=== PATIENT | male | born 1990 | race Caucasian/White ===

== ENCOUNTER 2018-12-23 04:56 | Emergency (ER) | payer SELFPAY ==
[~2018-12-23] VITALS: Ht 188 cm; Wt 83.9 kg
[~2018-12-23 04:56] MED LIST: CEPH500C PO; HYDR-1231 PO
[2018-12-23] MEDS ORDERED: SULF1TAB35 PO (05:38)
--- NOTE | 2018-12-23 05:39 | ED General ---
General Chief Complaint: Skin/Wound Problems Stated Complaint: LEFT WRIST INFECTION,PAINFUL Nursing Triage Note: Pt amb to room #6 w/o difficulty. a&ox4. C/o wound to lt medial wrist. 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 Pt reports area of concern has increased in redness, swelling, temperature, and drainage throughout x1 wk. Pt reports he was awoken this am d/t pain rated 5/10. Pt reports this am, he lanced area and expelled green/mulligan drainage. Denies recent fever or chills. Nursing Sepsis Screen: No Definite Risk Source of Information: Patient Exam Limitations: No Limitations History of Present Illness Date Seen by Provider: Dec 23, 2018 Time Seen by Provider: 05:16 Initial Comments This 28-year-old gentleman presents to the emergency room with complaints of abscess on the left wrist. He was recently swimming in a [place] in [place] while wearing multiple bracelets. He developed infection where these bracelets were applying pressure to his wrist. He had an abscess that he opened himself at home. He reports expressing a significant amount of purulent material and a firm clump of whitish material. He states that erythema and inflammation has worsened since then. Symptoms started about one week ago. He denies any fever. Allergies and Home Medications Allergies Coded Allergies: No Known Drug Allergies (Unverified , 03/06/14) Home Medications Cephalexin Monohydrate 500 Mg Capsule, 1 EACH PO TID Prescribed by: VANESSA SALINAS on 03/06/14 1417 Hydrocodone Bit/Acetaminophen 1 Tab Tablet, 1 TAB PO Q6H PRN for PAIN Prescribed by: VANESSA SALINAS on 03/06/14 1417 Sulfamethoxazole/Trimethoprim 1 Each Tablet, 1 EACH PO BID Prescribed by: GUNNAR GRAFF on 12/23/18 0538 Patient Home Medication List Home Medication List Reviewed: Yes Review of Systems Review of Systems Constitutional: no symptoms reported EENTM: no symptoms reported Respiratory: no symptoms reported Cardiovascular: no symptoms reported Gastrointestinal: no symptoms reported Genitourinary: no symptoms reported Musculoskeletal: no symptoms reported Skin: see HPI Psychiatric/Neurological: No Symptoms Reported Hematologic/Lymphatic: No Symptoms Reported Immunological/Allergic: no symptoms reported Past Ujhhjia-Ouniya-Rwxhhl Hx Past Med/Social Hx: Reviewed Nursing Past Med/Soc Hx Patient Social History Alcohol Use: Rarely Uses Recreational Drug Use: No Smoking Status: Former Smoker 2nd Hand Smoke Exposure: No Recent Foreign Travel: No Contact w/Someone Who Travel: No Recent Infectious Disease Expo: No Immunizations Up To Date Tetanus Booster (TDap): Less than 5yrs Past Medical History Surgeries: No Respiratory: No Cardiac: No Neurological: No Reproductive Disorders: No Gastrointestinal: No Musculoskeletal: No Endocrine: No HEENT: No Psychosocial: No Family Medical History Patient reports no known family medical history. Physical Exam Vital Signs Vital Signs - First Documented 12/23/18 05:12 Temp 98.3 Pulse 74 Resp 15 B/P (MAP) 145/95 (112) Pulse Ox 100 O2 Delivery Room Air Capillary Refill : Less Than 3 Seconds Height, Weight, BMI Height: 6'2.00" Weight: 185lbs. oz. 83.281938aq; BMI Method:Stated General Appearance: No Apparent Distress, WD/WN HEENT: PERRL/EOMI, Normal ENT Inspection Neck: Normal Inspection Respiratory: Lungs Clear, Normal Breath Sounds, No Accessory Muscle Use Cardiovascular: Regular Rate, Rhythm, No Edema, No Murmur Extremity: Other (there is a lesion on the left wrist measuring in total about 3 cm in diameter. It is raised, tender, and inflamed. There is no active drainage at this time.) Neurologic/Psychiatric: Alert, Oriented x3, No Motor/Sensory Deficits, Normal Mood/Affect, service tech II-XII Norm as Tested Skin: Normal Color, Warm/Dry Progress/Results/Core Measures Suspected Sepsis Recent Fever Within 48 Hours: No Infection Criteria Present: Suspected New Infection New/Unexplained Altered Menta: No Sepsis Screen: No Definite Risk SIRS Temperature:98.3 Pulse: 74 Respiratory Rate: 15 Blood Pressure 145 /95 Mean: 112 Results/Orders My Orders Vital Signs/I&O Capillary Refill : Less Than 3 Seconds Blood Pressure Mean: 112 Progress Note : Progress Note Abscess was suspected. I discussed options with the patient which included antibiotic therapy and opening the abscess again to allow appropriate drainage. Patient was agreeable to both of these options. Skin was cleaned with alcohol wipes and a 1 cm incision was placed over the center of the lesion. This returned blood but no significant amount of purulent drainage. Tissue seemed to be fairly indurated. He was given a dose of Bactrim DS prior to dismissal. He believes he is up-to-date on his tetanus immunization. Departure Impression Primary Impression: Abscess of left upper extremity Disposition: 01 HOME, SELF-CARE Condition: Improved Departure-Patient Inst. Referrals: [facility] [place] ([place]/Family) Primary Care Physician Patient Instructions: Skin Abscess Add. Discharge Instructions: Do not submerge wound and until it is healed. You may otherwise shower as usual. For pain you may use ibuprofen up to 600 mg every 6 hours as needed and/or Tylenol (acetaminophen) up to 1000 mg every 6 hours. Complete your antibiotics as prescribed. Return to care if you have worsening symptoms, especially if you develop fevers over 100. All discharge instructions reviewed with patient and/or family. Voiced understanding. Scripts Sulfamethoxazole/Trimethoprim (Bactrim Ds Tablet) 1 Each Tablet 1 EACH PO BID, #14 TAB Prov: GUNNAR MORELOS MD 12/23/18 GUNNAR MORELOS MD Dec 23, 2018 05:39
[2018-12-23 05:41] VITALS: BP 145/95
[2018-12-23] MEDS ORDERED: TRIM/SULFAMETH 160/800 (SEPTRA DS) TAB PO ONE (05:45)
== END 2018-12-23 05:41 | disposition home or self-care (01) ==
LOC: EDUNIT# 04:56 → ER 05:01
DX: L02.414 Cutaneous abscess of left upper limb (principal); Z87.891 Personal history of nicotine dependence
CPT/HCPCS: 99283